=== PATIENT | female | born 1945 | race Caucasian/White ===

== ENCOUNTER → 2016-06-29 | Outpatient (CLI) | payer MEDICARE, BC ==
--- NOTE | ~2016-06-29 | PUL ---
PATIENT'S NAME: LUCHO HANKINS [facility] AGE: 70 Y [address] 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 FVC was 2.11 liters which is 76% of predicted and normal, FEV1 was 1.38 liters which is 66% of predicted and low, and FEV1/FVC was 65% and low. The flow volume curve revealed significant airflow limitation especially at low lung volumes. After bronchodilator administration FVC increased to 2.49 liters which is an 18% increase and FEV1 increased to 1.7 liters which is a 23% increase. FEV1/FVC was 68%. 2. DLCO was 24.3 with an adjusted DLCO of 25.5 which is 129% of predicted and normal. 3. Total lung capacity was 5.82 liters which is 132% of predicted and high, and residual volume was 3.2 liters which is 182% of predicted and high. PHYSICIAN INTERPRETATION: The patient has moderate airflow limitation with a significant bronchodilator response. Her diffusion capacity is normal. There is evidence of hyperinflation and air trapping on the lung volumes. MD CHELSIE MCGREGOR/nena /[id number] dtt: 07/02/16 0944 , ABBIE MALONEY dtd: 07/02/16 0723
== END | disposition disaster alternative care site (69) ==
LOC: GRTH 08:43
DX: R05 Cough (principal); R93.8 Abnormal findings on diagnostic imaging of other specified body structures; Z87.891 Personal history of nicotine dependence; Z79.899 Other long term (current) drug therapy